=== PATIENT | male | born 1995 | race Two or more races ===

== ENCOUNTER 2018-02-25 00:17 | Emergency (ER) | payer SELFPAY ==
[~2018-02-25] VITALS: Ht 185.4 cm; Wt 113.4 kg
[2018-02-25] MEDS ORDERED: NKM (00:25)
[2018-02-25 00:35] VITALS: BP 124/80
--- NOTE | 2018-02-25 00:44 | Emergency Room Report ---
History of Present Illness General Chief Complaint: Chest Pain Source: Patient Present Illness HPI Patient presents with complaints of left upper chest pain and shoulder pain He reports that last week he was dancing with a girl she was falling when he essentially caught her and reports that the pain started since then Denies any pleurisy Denies any shortness of breath denies any back or flank pain he also complains of some left-sided shoulder pain Pain is worse with movement better with rest denies any back pain Allergies: Coded Allergies: No Known Allergies (Unverified , 02/25/18) Patient History Past Medical History: see triage record Pertinent Family History: none Reviewed Nursing Documentation: PMH: Agreed; PSxH: Agreed Nursing Documentation-PMH Past Medical History: No Stated History Review of Systems All Other Systems: negative except mentioned in HPI Physical Exam Vital Signs Date Time Temp Pulse Resp B/P (MAP) Pulse Ox O2 Delivery O2 Flow Rate FiO2 02/25/18 00:21 98.6 66 18 120/77 96 Room Air 98.6 Sp02 EP Interpretation: reviewed, normal General Appearance: well appearing, no apparent distress Head: normocephalic, atraumatic Eyes: bilateral eye PERRL, bilateral eye EOMI ENT: hearing grossly normal, normal pharynx, TMs + canals normal, uvula midline Neck: full range of motion, supple, no meningismus, no bony tend Respiratory: lungs clear, normal breath sounds, no rhonchi, no respiratory distress, no retraction, no accessory muscle use Cardiovascular #1: normal peripheral pulses, regular rate, rhythm, no edema, no gallop, no JVD, no murmur Gastrointestinal: normal bowel sounds, non tender, soft, no mass, no organomegaly, non-distended, no guarding, no hernia, no pulsatile mass, no rebound Genitourinary: no CVA tenderness Musculoskeletal: normal inspection Neurologic: oriented x3, responsive, pan devulcanizer III-XII nml as tested, motor strength/ tone normal, sensory intact Psychiatric: mood/affect normal Skin: normal color, no rash, warm/dry, palpation normal Lymphatic: normal inspection, no adenopathy Medical Decision Making Diagnostic Impression: Primary Impression: Muscle strain Additional Impression: Chest pain ER Course Given the patient's history exam given the presentation consideration for multiple differentials including but not limited to cardiac, cardiopulmonary and vascular pathology was entertained patient's description however is consistent mainly with musculoskeletal sprain/strain Patient was provided with anti-inflammatory I did not feel that any further workup was required EKG and x-ray were normal and patient stable for close follow-up EKG Diagnostic Results Rate: normal Rhythm: NSR ST Segments: no acute changes Rhythm Strip Diag. Results EP Interpretation: yes Rate: 67 Rhythm: NSR, no PVC's, no ectopy Chest X-Ray Diagnostic Results Chest X-Ray Diagnostic Results : Chest X-Ray Ordered: Yes # of Views/Limited/Complete: 1 View Indication: Chest Pain EP Interpretation: Yes Interpretation: no consolidation, no effusion, no pneumothorax Impression: No acute disease Electronically Signed by: Iris Cabello DO Last Vital Signs Date Time Temp Pulse Resp B/P (MAP) Pulse Ox O2 Delivery O2 Flow Rate FiO2 02/25/18 00:21 98.6 66 18 120/77 96 Room Air 98.6 Status: improved Disposition: HOME, SELF-CARE Condition: Improved Scripts Ibuprofen* (MOTRIN*) 600 Mg Tablet 600 MG ORAL Q8H PRN for For Pain, #20 TAB 0 Refills Prov: Iris Cabello DO 02/25/18 Additional Instructions: Patient is provided with the discharge instructions notified to follow up with primary doctor in the next 2-3 days otherwise return to the er with any worsening symptoms. Please note that this report is being documented using [employer] technology. This can lead to erroneous entry secondary to incorrect interpretation by the dictating instrument. Iris Cabello DO Feb 25, 2018 00:44
[2018-02-25] MEDS ORDERED: IBUPROFEN600 MG ORAL (01:21)
[2018-02-25 01:38] VITALS: BP 130/79
[2018-02-25 01:39] VITALS: BP 124/80
--- NOTE | 2018-02-25 09:56 | Diagnostic Imaging Report ---
Indication: Chest pain Technique: One view of the chest Comparison: none Findings: Lungs and pleural spaces are clear. Heart size is normal Impression: No acute process
== END 2018-02-25 01:40 | disposition home or self-care (01) ==
LOC: EMR 00:44
DX: R07.9 Chest pain, unspecified (principal); T14.8XXA Other injury of unspecified body region, initial encounter; W50.0XXA Accidental hit or strike by another person, initial encounter; Y93.41 Activity, dancing; Y92.9 Unspecified place or not applicable
CPT/HCPCS: 71045; 93005; 99283